=== PATIENT | female | born 1995 | race African-American/Black ===

== ENCOUNTER 2024-10-04 22:14 | Emergency (ER) | payer SELFPAY ==
[~2024-10-04] VITALS: Ht 160 cm; Wt 63.6 kg
[2024-10-04 22:21] VITALS: BP 123/79; PULSE 81; RESP 18; TEMP 98.2; O2SAT 97
[2024-10-04] MEDS ORDERED: AMOX-457 PO (23:42)
[2024-10-04] MEDS: BACITRACIN 0.9 GM PACKET OINTMENT TP ONE (23:50)
[2024-10-04] MEDS: AMOX TR/POT CLAV 875 MG/125 MG TABLET PO ONE (23:50)
== END 2024-10-05 00:27 | disposition home or self-care (01) ==
LOC: EMS 22:14
DX: S51.832A Puncture wound without foreign body of left forearm, initial encounter (principal); Z72.89 Other problems related to lifestyle; W54.0XXA Bitten by dog, initial encounter; Y93.89 Activity, other specified; Y92.89 Other specified places as the place of occurrence of the external cause; Y99.8 Other external cause status
CPT/HCPCS: 99283